=== PATIENT | male | born 1945 | race Caucasian/White ===

== ENCOUNTER 2020-04-08 08:36 | Day surgery (SDC) | payer OTHER ==
[~2020-04-08] VITALS: Ht 180.3 cm; Wt 126.3 kg
[~2020-04-08 08:36] MED LIST: ANDRODERM1 EAC1 TD; Flomax0.4 MG PO; HYDR1TAB94 PO; METAPROTERENOL PO; NAPR220 PO; Percocet 10-321 EACH PO; Percocet 5-3251 EACH PO; TAMS.4ER PO; TOPROL XL50 M1 PO; Zofran Odt4 MG SL
--- NOTE | 2020-04-08 09:30 | NUR ---
PT TO SDS VIA WC. Lungs clear T/O to Auscultation. History, Chart, Medications and Allergies reviewed before start of procedure. Patient reports completing Chlorhexadine shower X2 prior to admission to hospital. R HIP CLIPPED AND PREPPED. NASAL CLEANSING COMPLETE.
[2020-04-08] MEDS ORDERED: Norco 5-325 Ta1 EACH PO (16:28)
[2020-04-09 04:16] LABS: BASOPHILS ABSOLUTE AUTO 0.02 K/mm3 (0.00-0.23); BASOPHILS PERCENT AUTO 0 % (0-2); EOSINOPHILS PERCENT AUTO 0 % (0-6); Hematocrit 39.5 % (37.0-53.0); Hemoglobin 12.8 g/dL (13.5-17.5); IMMATURE GRAN ABSOLUTE AUTO 0.07 K/mm3 (0.00-0.10); IMMATURE GRAN PERCENT AUTO 1 % (0-1); LYMPHOCYTES ABSOLUTE AUTO 0.97 K/mm3 (0.84-5.20); LYMPHOCYTES PERCENT AUTO 7 % (21-46); MONOCYTES ABSOLUTE AUTO 1.22 K/mm3 (0.16-1.47); MONOCYTES PERCENT AUTO 8 % (4-13); Mean Corpuscular HGB 30.9 pg (26.0-34.0); Mean Corpuscular HGB Conc 32.4 g/dL (31.5-36.5); Mean Corpuscular Volume 95 fL (80-100); Mean Platelet Volume 10.6 fL (9.1-12.4); NEUTROPHILS PERCENT AUTO 84 % (41-73); Platelet Count 185 K/mm3 (150-400); RDW Coefficient Variation 12.8 % (11.7-14.2); RDW Standard Deviation 44.2 fL (35.1-46.3); Red Blood Cell Count 4.14 M/mm3 (4.30-5.90); White Blood Cell Count 14.48 K/mm3 (4.00-11.30)
--- NOTE | 2020-04-09 04:29 | NUR ---
SHIFT SUMMARY PT IS A/O X4. HAS BEEN UP TO BATHROOM WITH 2X ASSIST AND FWW. TOLERATING PO INTAKE W/O NAUSEA, VOIDING, AND PAIN MANAGED WITH PO PAIN MED AND TORADOL PER ORDERS. POLAR PACK IN PLACE TO R HIP OVERNIGHT. AQUACEL CDI. PT HAS REPORTED PAIN MANAGED WELL IN HIP. PT RESTING IN BED AT THIS TIME WITH CALL LIGHT IN REACH.
[2020-04-09 04:37] LABS: Anion Gap 6 mmol/L (6-16); Blood Urea Nitrogen 30 mg/dL (8-24); Bun/Creatinine Ratio 27.3 (12.0-20.0); CO2, Blood 27 mmol/L (21-32); Calcium, Blood 8.2 mg/dL (8.5-10.1); Chloride, Blood 105 mmol/L (98-108); Glomerular Filtration Rate >60 (60-); Glucose, Blood 160 mg/dL (70-99); Magnesium, Blood 2.3 mg/dL (1.6-2.4); Potassium, Blood 4.4 mmol/L (3.5-5.5); Sodium, Blood 138 mmol/L (136-145)
[2020-04-09] MEDS ORDERED: ASPI81CH PO (10:02)
--- NOTE | 2020-04-09 11:47 | NUR ---
DISCHARGE ESCORTED OUT VIA W/C. CLEARED THERAPY. SCRIPT GIVEN FOR [facility], POLAR PACK & DRSGS, CLEAN URINAL SENT. UPON ENTERING VEHICLE FOR D/C REPORTS HE DOES NOT HAVE A FWW WALKER @ HOME, ONLY A 4 WHEELED WALKER. HE STILL WISHES TO LEAVE. ORTHO CALLED AND INFORMED OF THIS AND STATES WILL SEND ORDER FOR FWW TO [facility] TO BE DELIVERED TO HOME.
== END 2020-04-09 11:30 | disposition home or self-care (01) ==
LOC: ORSCMMR 08:36 → ORD 11:15 → SURS 14:23 → ORSCMMR 14:23 → SURS 04-09 11:30 → ORSCMMR 04-09 11:30
PROVIDERS: Orthopaedic Surgery
PROC: 0SR90J9 Replacement of Right Hip Joint with Synthetic Substitute, Cemented, Open Approach (ICD-10-PCS; principal; 2020-04-08 11:15)
DX: M16.11 Unilateral primary osteoarthritis, right hip (principal); I10 Essential (primary) hypertension; J44.9 Chronic obstructive pulmonary disease, unspecified; F17.210 Nicotine dependence, cigarettes, uncomplicated; R73.03 Prediabetes; E66.01 Morbid (severe) obesity due to excess calories; Z68.38 Body mass index [BMI] 38.0-38.9, adult; Z79.899 Other long term (current) drug therapy
CPT/HCPCS: 36415; 72170; 80048; 83735; 85025; 88300; 97110; 97116; 97162; 97530; A9270; C1776; J0171; J0330; J0690; J0735; J1100; J1885; J2250; J2370; J2405; J2704; J2795; J3010; J7120